=== PATIENT | female | born 1950 | race Caucasian/White ===

== ENCOUNTER 2018-08-01 15:58 | Inpatient (IN) | payer MEDICARE ==
[~2018-08-01] VITALS: Ht 160 cm; Wt 72.6 kg
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
[2018-08-01] MEDS ORDERED: GALANTAMINE 8 MG PO (17:30)
[2018-08-01] MEDS ORDERED: RAZADYNE ER8 MG PO (17:32)
[2018-08-01] MEDS ORDERED: VITAMIN D250000 UNIT PO (17:32)
[2018-08-01] MEDS ORDERED: NAMENDA10 MG PO (17:33)
[2018-08-01] MEDS ORDERED: ACETAMINOPHEN325 MG PO (17:34)
[2018-08-01] MEDS ORDERED: DEPAKOTE125 MG PO (17:36)
[2018-08-01] MEDS ORDERED: REMERON15 MG PO (17:37)
[2018-08-01] MEDS ORDERED: GABAPENTIN100 MG PO (17:40)
[2018-08-01] MEDS ORDERED: SEROQUEL25 MG PO (17:40)
[2018-08-01 17:43] VITALS: BP 141/67
[2018-08-01] MEDS ORDERED: THEREMS-M1 TAB PO (17:54)
[2018-08-01] MEDS ORDERED: NORVASC5 MG PO (17:54)
[2018-08-01 18:14] VITALS: BP 141/67; BMI 28.4
--- NOTE | 2018-08-01 20:04 | NUR ---
RECEIVED IN DAYROOM. CONFUSED. ANXIOUS. COOPERATIVE WITH CARE AND ASSESSMENT. NO SIGNS OF AGGRESSON OR AGITATION. REDIRECT AND REORIENT NEEDED. RESTING IN BED WITH EYES CLOSED AT THIS TIME. CONTINUE PLAN OF CARE.
--- NOTE | 2018-08-02 07:31 | NUR ---
B) The patient is awake, she is wandering, she answers if you say her name, but she is not able to state her name. She is pleasant at this time and has not shown any aggression this am. I) Provide prescribed meds. R) The patient is currently in the hallway awaiting vital signs to be taken. P) Continue POC.
[2018-08-02 08:03] LABS: BASOPHILS 0.2 % (0-2); EOSINOPHILS 1.2 % (0-7); HEMOGLOBIN 13.9 g/dL (12-16); LYMPHOCYTES 33.2 % (15-50); MCH 29.3 pg (26.0-34.0); MCHC 33.1 g/dL (31.0-37.0); MCV 88.4 fL (80.0-100.0); MEAN PLATELET VOLUME 9.7 fL (7.4-10.4); MONOCYTES 7.3 % (2-11); NEUTROPHILS 58.1 % (40-80); PLATELET COUNT 277 10x3/uL (130-400); RBC 4.75 10x6/uL (4.00-5.40); RDW 13.7 % (11.5-14.5); WBC 4.9 10x3/uL (4.8-10.8)
[2018-08-02 08:23] LABS: ALBUMIN 2.8 g/dL (3.4-5.0); ALKALINE PHOSPHATASE 68 U/L (46-116); ALT (SGPT) 17 U/L (10-68); BILIRUBIN - TOTAL 0.36 mg/dL (0.2-1.3); CALC OSMOLALITY 287 mosm/kg (275-300); CALCIUM 8.4 mg/dL (8.5-10.1); CARBON DIOXIDE 28.6 mmol/L (21.0-32.0); CHLORIDE - SERUM 106 mmol/L (98-107); CHOL - HDL RATIO 4.2 ratio (2.3-4.1); CHOLESTEROL, TOTAL 202 mg/dL (0-200); CREATININE - SERUM 0.6 mg/dL (0.6-1.3); GLUCOSE 128 mg/dL (74-106); HDL CHOLESTEROL 48 mg/dL (32-96); LDL CHOLESTEROL 133 mg/dL (0-100); LDL-HDL RATIO 2.8 ratio (1.5-3.5); PROTEIN - SERUM 7.5 g/dL (6.4-8.2); SODIUM 143 mmol/L (136-145); THYROID STIMULATING HORMONE 1.72 uIU/mL (0.36-3.74); TRIGLYCERIDE 109 mg/dL (30-200); UREA NITROGEN 16 mg/dL (7-18); eGFR NON AFRICAN AMERICAN > 90 mL/min (90-120)
[2018-08-02 09:28] VITALS: BP 124/70
[2018-08-02 10:10] VITALS: BMI 28.4
--- NOTE | 2018-08-02 10:21 | NUR ---
PT CONTINUES TO WANDER THE HALLS AND IS VERY RESTLESS. SHE IS A FEEDER ONLY BECAUSE SHE CANNOT FOCUS LONG ENOUGH TO FEED HERSELF. FALL PRECAUTIONS MAINTAINED. WILL CONTINUE TO MONITOR AND CONTINUE WITH PLAN OF CARE.
[2018-08-02 14:59] VITALS: Ht 160 cm; Wt 72.6 kg
[2018-08-02 20:00] VITALS: BP 139/59
--- NOTE | 2018-08-02 22:47 | NUR ---
PATIENT IS VERY CONFUSED, HAS TO REDIRECTED CONSTANTLY, COMPLIANT WITH MEDS. LABILE. WILL FOLLOW POC
--- NOTE | 2018-08-03 05:29 | NUR ---
PATIENT GIVEN ATIVAN 0.5 MG PO FOR ANXIETY AT 23:15.
[2018-08-03 06:14] LABS: VITAMIN D 25 HYDROXY 39.8 ng/mL (30.0-100.0)
[2018-08-03 07:24] LABS: RAPID PLASMA REAGIN Non Reactive (Non Reactive)
--- NOTE | 2018-08-03 08:01 | NUR ---
B) The patient is wandering the hallways, she is nonsensical, she asks about her daughter and her . She uses one word. "" or "Daughter." She is not able to state her name, she does not follow simple direction. She is unable to comprehend. I) Provide prescribed medications. Redirect as needed to stay out of rooms. P) Continue POC.
[2018-08-03 08:16] LABS: FOLATE (FOLIC ACID) - SERUM >20.0 ng/mL (>3.0)
[2018-08-03 08:27] VITALS: BP 153/74
--- NOTE | 2018-08-03 08:35 | NUR ---
Obtained urine for lab work. In and out cath.
[2018-08-03 09:36] LABS: APPEARANCE CLEAR (CLEAR); BILIRUBIN NEGATIVE (NEGATIVE); COLOR YELLOW (YELLOW); GLUCOSE NEGATIVE (NEGATIVE); KETONE SMALL mg/dL (NEGATIVE); NITRITE NEGATIVE (NEGATIVE); PROTEIN TRACE mg/dL (NEGATIVE); UROBILINOGEN NORMAL (NORMAL)
[2018-08-03 09:37] LABS: BACTERIA FEW /hpf (NONE SEEN); EPITHELIAL CELLS 0-5 /hpf (0-5); RED CELLS - URINE 0-5 /hpf (0-5)
--- NOTE | 2018-08-03 15:39 | NUR ---
PATIENT PACING ABOUT DAYROOM GETTING IN VERBAL ALTERCATIONS WITH OTHER PATIENTS. ATIVAN 0.5 MG ADMIN PO FOR ANXIETY, LUZ MARIA WELL.
[2018-08-04 01:57] VITALS: BP 186/106
--- NOTE | 2018-08-04 02:33 | NUR ---
B) Patient is alert and oriented to self, calm and cooperative this shift, I) Administered scheduled medications as ordered, monitored for safety R) Medication compliant, sleeping quiety, P) Continue plan of care.
--- NOTE | 2018-08-04 10:00 | NUR ---
CONFUSED AND DISORIENTED.COMPLIANT WITH STAFF AND MEDS.WILL NOT SIT THROUGH ONE MEAL AND FINISH MEAL,HAS TO BE REDIRECTED SEVERAL TIMES TO GO SIT BACK DOWN TO EAT.OFTEN USES FINGERS TO EAT,EX:MASHED POTATOES,CEREALS ,ECT.WANDERS ABOUT UNIT.TALKS ABOUT DAUGHTER AND IN NONSENSIBLE WAY.WILL CONTINUE WITH PLAN OF CARE,MONITOR FOR CHANGES .
[2018-08-04 10:03] VITALS: BP 100/57; BP 142/62
--- NOTE | 2018-08-04 11:49 | PN ---
PATIENT:ADY SOLER MEDICAL RECORD: [id number] LOCATION:[facility] ADMISSION DATE: 08/01/18 PROGRESS NOTE DATE OF SERVICE: 08/03/2018 SUBJECTIVE: The patient's case was discussed with staff. She has no new complaint. OBJECTIVE: The patient is in good behavioral control, but very confused. She walks about in a confused state, rambles off and incoherently, but today at least is pleasant. ASSESSMENT: No change in diagnoses. PLAN: I do think the patient is manic despite her overlying dementia. I am going to treat her with lithium. She has normal renal function and it should not be a major issue to titrate her to a therapeutic dose. TRANSINT:[id number] Voice Confirmation ID: [id number] DOCUMENT ID: [id number] IFEANYI SALAS MD at 1149 CC: [id number] DICTATION DATE: 08/03/18 1352 LITIGATION DOCKET MANAGER: 08/03/18 1400 ADM IN [address] [place] [address]
--- NOTE | 2018-08-04 15:00 | NUR ---
WANDERING ABOUT UNIT,TALKING AGGRESSIVELY ABOUT HER DAUGHTER,EXIT SEEKING.VERY CONFUSED AND DISORIENTED.UNABLE TO REDIRECT.ATIVAN 0.5MG PO GIVEN .
--- NOTE | 2018-08-04 15:25 | NUR ---
SCREAMING OUT,WILL NOT REDIRECT.HALDOL 2MG IM GIVEN.
--- NOTE | 2018-08-04 16:00 | NUR ---
FAMILY HERE VISITING.HAS HAD GOOD RESPONSE TO ATIVAN AND HALDOL.
--- NOTE | 2018-08-04 16:17 | NUR ---
FAMILY HERE TO VISIT PATIENT.
--- NOTE | 2018-08-04 19:03 | NUR ---
PATIENT EXIT-SEEKING, SHAKING DOORS AND SCREAMING ALOUD WHEN DOOR WOULD NOT OPEN.
--- NOTE | 2018-08-04 22:08 | NUR ---
RECEIVED DAY ROOM. SITTING IN CHAIR WITH PEERS AT HER SIDE. CALM AND COOPERATIVE WITH CARE AND ASSESSMENT. NO SIGNS OF AGGRESSION OR AGITATION. REDIRECT AND REORIENT NEEDED. RESTING IN BED WITH EYES CLOSED AT THIS TIME. CONTINUE PLAN OF CARE.
[2018-08-04 22:53] VITALS: BP 107/60
--- NOTE | 2018-08-05 07:30 | NUR ---
THE PT IS WANDERING IN HALLWAYS VERY CONFUSED. PT IS NOT ABLE TO STATE HER NAME OR FLOOLW SIMPLE DIRECTIONS. SHE IN UNABLE TO COMPREHEND. PRESCRIBED MEDS PROVIDED. NON MED COMPLIANT. REDIRECT AND REORIENT NEEDED. WILL CONTINUE TO MONITOR Q 15 MINUTES FOR SAFETY. WILL CPOC.
[2018-08-05 08:00] VITALS: BP 134/68
--- NOTE | 2018-08-05 15:29 | PN ---
PATIENT:ADY SOLER MEDICAL RECORD: [id number] LOCATION:[facility] ADMISSION DATE: 08/01/18 PROGRESS NOTE DATE OF SERVICE: 08/04/2018 SUBJECTIVE: The patient's case was discussed with staff. She has no new complaint. OBJECTIVE: The patient wanders about the unit. She is anxious, but not aggressive. She is clearly very confused. ASSESSMENT: No change in diagnoses. PLAN: Current medicines have been reviewed and will be maintained. Long-term prognosis is guarded. TRANSINT:[id number] Voice Confirmation ID: [id number] DOCUMENT ID: [id number] IFEANYI SALAS MD at 1529 CC: [id number] DICTATION DATE: 08/04/18 1155 SADDLE TREE STITCHER: 08/04/18 1209 ADM IN [id number] [place] [address]
[2018-08-05 20:03] VITALS: BP 168/100
--- NOTE | 2018-08-05 21:27 | NUR ---
RECEIVED IN DAYROOM. WANDERING AROUND. CALM AND COOPERATIVE WITH CARE AND ASSESSMENT. NO SIGNS OF AGGRESSION. REDIRECT AND REORIENT NEEDED. RESTING IN BED WITH EYES CLOSED AT THIS TIME. CONTINUE PLAN OF CARE.
[2018-08-06 08:00] VITALS: BP 141/69
--- NOTE | 2018-08-06 09:00 | NUR ---
PATIENT CONTINUES TO WANDER AROUND DAYROOM, VERY RESTLESS AND CONFUSED. SHE CONSTANTLY TOUCHES EVERYTHING. SHE HAS DIFFICULTY EXPRESSING WHAT SHE WANTS TO SAY. FALL PRECAUTIONS MAINTAINED. WILL CONTINUE GREEN OF CARE.
--- NOTE | 2018-08-06 10:00 | NUR ---
Nutrition Follow Up: Chart reviewed Diet: Regular with Ground Meats PO Intake: 26% meal avg No BM since admit Labs reviewed Meds noted including Megace Rec continue regular diet with DIE CAST SUPERVISOR recs for consistencies. Will order Ensure BID. RD following.
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
--- NOTE | 2018-08-06 22:46 | NUR ---
RECEIVED IN DAYROOM. WALKING AROUND. VERY CONFUSED. CALM AND COOPERATIVE WITH CARE AND ASSESSEMNT. NO SIGNS OF AGGRESSION. REDIRECT AND REORIENT NEEDED. RESTING IN BED WITH EYES CLOSED AT THIS TIME. CONTINUE PLAN OF CARE.
[2018-08-06 23:36] VITALS: BP 100/51
[2018-08-07 07:50] VITALS: BP 118/70
--- NOTE | 2018-08-07 11:00 | NUR ---
REPORT RECEIVED AB CARE ASSUMED. SHE WANDERS AROUND DAYROOM. PROVIDE PRESCRIBED MEDS. COMPLIANT WITH MEDS. REDIRECT AND REORIENT NEEDED. FALL PRECAUTIONS MAINTAINED. CONTINUE PLAN OF CARE.
--- NOTE | 2018-08-07 15:37 | PN ---
PATIENT:ADY SOLER MEDICAL RECORD: [id number] LOCATION:[facility] ADMISSION DATE: 08/01/18 PROGRESS NOTE DATE OF SERVICE: 08/06/2018 SUBJECTIVE: The patient's case was discussed with staff. She has no new complaint. OBJECTIVE: The patient denies intent to harm herself or others. She tolerates her medicines well. She is clearly very confused. ASSESSMENT: No change in diagnoses. PLAN: Supportive and educational interventions were made. Long-term prognosis is guarded. TRANSINT:[id number] Voice Confirmation ID: [id number] DOCUMENT ID: [id number] IFEANYI SALAS MD at 1537 CC: [id number] DICTATION DATE: 08/06/18 1314 LABORATORY TECH: 08/06/18 1407 ADM IN [address] [address]
--- NOTE | 2018-08-07 20:59 | NUR ---
RECEIVED IN HALLWAY. WANDERING AROUND. ATTEMPTING TO GO IN ROOMS OF OTHER PATIENTS. AGITATED. VERBALLY AGGRESSIVE AT TIMES. REDIRECT AND REORIENT NEEDED. RESTING IN BED WITH EYES CLOSED AT THIS TIME. CONTINUE PLAN OF CARE.
[2018-08-07 22:09] VITALS: BP 120/70
[2018-08-08 07:47] VITALS: BP 116/60
--- NOTE | 2018-08-08 14:48 | PN ---
PATIENT:ADY SOLER MEDICAL RECORD: [id number] LOCATION:[facility] ADMISSION DATE: 08/01/18 PROGRESS NOTE DATE OF SERVICE: 08/07/2018 SUBJECTIVE: The patient's case was discussed with staff. She has no new complaint. OBJECTIVE: The patient is clearly impaired cognitively, but actually looks significantly calmer today. ASSESSMENT: No change in diagnoses. PLAN: Supportive and educational interventions were made. Long-term prognosis is guarded. I have reviewed her current medications and will maintain them. TRANSINT:[id number] Voice Confirmation ID: [id number] DOCUMENT ID: [id number] IFEANYI SALAS MD at 1448 CC: [id number] DICTATION DATE: 08/07/18 1607 ELECTRICAL POWER ENGINEER: 08/08/18 0007 ADM IN [address] [place] [address]
--- NOTE | 2018-08-08 18:33 | NUR ---
HAS BEEN VERY CONFUSED AND DISORIENTED.WANDERS ABOUT UNIT.AGGITATED AT TIMES WITH ATTEMPTS TO REDIRECT.TAKES MEDS CRUSHED AND IN PUDDING.WILL CONTINUE WITH PLAN OF CARE,MONITOR FOR CHANGES AND SAFETY.
[2018-08-08 20:00] VITALS: BP 78/43
--- NOTE | 2018-08-09 04:30 | NUR ---
B) Patient is alert and oriented to self, very confused and wanders I) Administered scheduled medications as ordered, redirected as needed, R) Medication compliant, sleeping quietly P) Continue plan of care.
--- NOTE | 2018-08-09 07:39 | NUR ---
B) The patient is awake and she is oriented to herself, she has poor insight into her situation, she does ask about her medications and says "I am supposed to take my medicine." I) Reassure her that she will get her meds. Encourage the patient to get assistance before walking alone. R) The patient is calm at this time, she has not shown any irritability, but she does want to tell staff how to do things. P) Continue POC.
--- NOTE | 2018-08-09 08:05 | NUR ---
B) The patient is confused, she has not shown any aggression. She smiles when approached, she sometimes speaks coherently, but mostly it is word salad. She is ambulatory. I) Provide prescribed meds. R) The patient is oriented to self only. P) Continue POC.
[2018-08-09 08:10] VITALS: BP 111/43
[2018-08-09 20:08] VITALS: BP 145/98
--- NOTE | 2018-08-10 01:56 | NUR ---
B) Patient is alert and oriented to self, confused at times, follow directions, I) Administered scheduled medications as ordered, monitored for safety R) Mediation compliant, restig quietly now, P) Continue plan of care.
[2018-08-10 08:01] VITALS: BP 104/56
--- NOTE | 2018-08-10 10:02 | NUR ---
B) The patient is awake, she is oriented to self only. She is ambulatory and she wanders, she smiles and touches everything. She is pleasant, has not shown any agitation. She has poor insight into her situation. I) Provide prescribed meds, redirect as needed. R) The patient is compliant with meds and she is easily redirected today. P) Continue POC.
--- NOTE | 2018-08-10 12:56 | PN ---
PATIENT:ADY SOLER MEDICAL RECORD: [id number] LOCATION:[facility] ADMISSION DATE: 08/01/18 PROGRESS NOTE DATE OF SERVICE: 08/09/2018 SUBJECTIVE: The patient's case was discussed with staff. She has no new complaint. OBJECTIVE: The patient is in good behavioral control with limited insight about her condition. She tolerates her medicines well. ASSESSMENT: No change in diagnoses. PLAN: Supportive and educational interventions were made. Long-term prognosis is guarded. TRANSINT:[id number] Voice Confirmation ID: [id number] DOCUMENT ID: [id number] IFEANYI SALAS MD at 1256 CC: [id number] DICTATION DATE: 08/09/18 1643 CONSTRUCTION ELECTRICIAN: 08/09/18 2320 ADM IN [address] [address]
--- NOTE | 2018-08-10 12:56 | PN ---
PATIENT:ADY SOLER MEDICAL RECORD: [id number] LOCATION:[facility] ADMISSION DATE: 08/01/18 PROGRESS NOTE DATE OF SERVICE: 08/08/2018 SUBJECTIVE: The patient's case was discussed with staff. She has no new complaint. OBJECTIVE: The patient is in good behavioral control with limited insight about her condition. She tolerates her medicines well. ASSESSMENT: No change in diagnoses. PLAN: Brief supportive and educational interventions were made. Long-term prognosis is guarded. TRANSINT:[id number] Voice Confirmation ID: [id number] DOCUMENT ID: [id number] IFEANYI SALAS MD at 1256 CC: [id number] DICTATION DATE: 08/08/18 1505 GUARD MUSEUM: 08/08/18 2118 ADM IN [address] [address]
--- NOTE | 2018-08-10 16:19 | NUR ---
The patient's family is here and three of the siblings have made the decision to restart medications so that the patient will not be in such distress. The patient's daughter that is the nurse request that we call the Did let her know that I will text him MERARY.
--- NOTE | 2018-08-10 21:34 | NUR ---
PATIENT IS CONFUSED, WANDERS AROUND, TAKES MEDS, NO ADVERSE REACTION NOTED. WILL FOLLOW POC
[2018-08-11 04:45] VITALS: BP 130/65
--- NOTE | 2018-08-11 07:30 | NUR ---
REC'D PT IN HALLWAY PACING. PT DOES NOT CAUSE HARM TO OTHERS. PT IS CALMA ND COOPERATIVE WITH ASSESSMENT. PT IS ALERT TO SELF ONLY. PRESCRIBED MEDS PROVIDED. MED COMPLIANT. FALL PRECAUTIONS IN PLACE. NO AGGRESSION NOTED AT THIS TIME. WILL CONTINUE TO MONITOR Q 15 MINTES FOR SAFETY. WILL CPOC.
[2018-08-11 08:18] VITALS: BP 142/74
--- NOTE | 2018-08-11 12:21 | PN ---
PATIENT:ADY SOLER MEDICAL RECORD: [id number] LOCATION:[facility] ADMISSION DATE: 08/01/18 PROGRESS NOTE DATE OF SERVICE: 08/10/2018 SUBJECTIVE: The patient's case was discussed with staff. She has no new complaint. OBJECTIVE: The patient denies intent to harm herself or others. She generally tolerates her medicines well. She is sleeping and eating reasonably well. ASSESSMENT: No change in diagnoses. PLAN: The patient will have her Celexa increased to 20 mg daily. Celexa is being used to treat her underlying depression. She will be monitored for clinical changes associated with its use. Brief supportive and educational interventions were made. TRANSINT:[id number] Voice Confirmation ID: [id number] DOCUMENT ID: [id number] IFEANYI SALAS MD at 1221 CC: [id number] DICTATION DATE: 08/10/18 1322 MEDICAL RECEPTIONIST: 08/10/18 1329 ADM IN [id number] [place] [address]
--- NOTE | 2018-08-11 12:44 | PN ---
PATIENT:ADY SOLER MEDICAL RECORD: [id number] LOCATION:[facility] ADMISSION DATE: 08/01/18 PROGRESS NOTE DATE OF SERVICE: 08/11/2018 SUBJECTIVE: The patient's case was discussed with staff. She has no new complaint. OBJECTIVE: The patient slept 10 hours last night and ate most of the food presented to her yesterday. She is partially oriented and continues to wander a fair amount. ASSESSMENT: No change in diagnoses. PLAN: Supportive and educational interventions were made. Long-term prognosis is guarded. TRANSINT:[id number] Voice Confirmation ID: [id number] DOCUMENT ID: [id number] IFEANYI SALAS MD at 1244 CC: [id number] DICTATION DATE: 08/11/18 1233 AIR FILLER: 08/11/18 1238 ADM IN [id number] [place] [address]
[2018-08-11 21:16] VITALS: BP 135/70
--- NOTE | 2018-08-11 22:25 | NUR ---
PATIENT IS CONFUSED, WALKS AROUND AIMLESSLY, EASILY REDIRECTED AT TIMES, COMPLIANT WITH MEDS, NO ADVERSE REACTION NOTED. WILL FOLLOW POC
[2018-08-12 08:00] VITALS: BP 142/88
--- NOTE | 2018-08-12 10:00 | NUR ---
PATIENT IS AWAKE, WITH CONFUSION NOTED. ORIENTED TO SELF ONLY. SHE HAS BEEN SLEEPING SOME TODAY, BUT AWAKENS FOR MEALS. CALM AND COOPERATIVE WITH CARE ABD ASSESSMENT. MEDICATION COMPLIANT CRUSHED IN PUDDING. NO AGGRESSION NOTED. WILL CONTINUE PLAN OF CARE.
[2018-08-12 20:06] VITALS: BP 97/52
--- NOTE | 2018-08-13 00:06 | NUR ---
RECEIVED IN DAYROOM. RESTING IN RECLINER WITH EYES OPEN. CALM AND COOPERATIVE WITH CARE AND ASSESSMENT. NO SIGN OF AGGRESSION OR AGITATION. REDIRECT AND REORIENT NEEDED. RESTING IN BED WITH EYES CLOSED AT THIS TIME. CONTINUE PLAN OF CARE.
[2018-08-13 07:48] VITALS: BP 99/58
--- NOTE | 2018-08-13 10:46 | NUR ---
Nutrition Follow Up: Chart reviewed Diet: Regular with ground meat; Ensure BID PO Intake: 66% meal avg - much improved BM: 08/11/18 Labs reviewed Meds noted including Megace Rec continue current diet, supplement regimen. RD following.
--- NOTE | 2018-08-13 11:00 | NUR ---
RECEIVED IN RUTH AT NURSES DESK. AWAKE AND CONFUSED, ARGUEING WITH STAFF TO NOT GET DRESSED IN CLOTHES. CALM AND COOPRATIVE WITH CARE AND ASSESSMENT. NO AGGRESSION NOTED. REDIRECT AND REORIENT NEEDED. CONTINUE PLAN OF CARE.
--- NOTE | 2018-08-13 15:21 | PN ---
PATIENT:ADY SOLER MEDICAL RECORD: [id number] LOCATION:[facility] ADMISSION DATE: 08/01/18 PROGRESS NOTE DATE OF SERVICE: 08/12/2018 SUBJECTIVE: The patient's case was discussed with staff. She has no new complaint. OBJECTIVE: The patient denies intent to harm herself or others. She generally is tolerating her medicines well. She is much less intrusive. ASSESSMENT: No change in diagnoses. PLAN: Supportive and educational interventions were made. Her long-term prognosis is guarded. TRANSINT:[id number] Voice Confirmation ID: [id number] DOCUMENT ID: [id number] IFEANYI SALAS MD at 1521 CC: [id number] DICTATION DATE: 08/12/18 1613 AUDITOR: 08/12/18 1710 ADM IN [id number] [place] [address]
[2018-08-13 19:34] VITALS: BP 141/67
--- NOTE | 2018-08-13 21:32 | NUR ---
RECEIVED IN DAYROOM. RESTING IN RECLINER WITH EYES CLOSED. CALM AND COOPERATIVE WITH CARE AND ASSESSMENT. NO SIGNS OF AGITATION. REDIRECT AND REORIENT NEEDED. RESTING IN BED WITH EYES OPEN AT THIS TIME. CONTINUE PLAN OF CARE.
[2018-08-14 09:44] VITALS: BP 113/46
--- NOTE | 2018-08-14 15:56 | PN ---
PATIENT:ADY SOLER MEDICAL RECORD: [id number] LOCATION:[facility] ADMISSION DATE: 08/01/18 PROGRESS NOTE DATE OF SERVICE: 08/13/2018 SUBJECTIVE: The patient's case was discussed with staff. She has no new complaint. OBJECTIVE: The patient denies intent to harm herself or others. She generally tolerates her medicines well. ASSESSMENT: No change in diagnoses. PLAN: Current medicines have been reviewed and will be maintained. Her long-term prognosis is guarded. TRANSINT:[id number] Voice Confirmation ID: [id number] DOCUMENT ID: [id number] IFEANYI SALAS MD at 1556 CC: [id number] DICTATION DATE: 08/13/[address] ASSOCIATE JUSTICE: 08/13/18 2250 ADM IN [address] [place] [address]
[2018-08-14 22:07] VITALS: BP 110/52
--- NOTE | 2018-08-14 22:35 | NUR ---
RECEIVED IN PATIENT ROOM. RESTING IN BED WITH EYES CLOSED. RESPONDS TO VOICE. CALM AND COOPERATIVE WITH CARE AND ASSESSMENT. NO SIGNS OF AGGRESSION. REDIRECT AND REORIENT NEEDED. RESTING IN BED WITH EYES CLOSED AT THIS TIME. CONTINUE PLAN OF CARE.
--- NOTE | 2018-08-15 06:30 | NUR ---
PATIENT RESISTIVE WITH CARE THIS MORNING. PATIENT YELLING OUT AND CURSING STAFF. HITTING AND KICKING STAFF. UNABLE TO BE REDIRECTED.
[2018-08-15 09:23] VITALS: BP 97/58
--- NOTE | 2018-08-15 14:00 | PN ---
PATIENT:ADY SOLER MEDICAL RECORD: [id number] LOCATION:[facility] ADMISSION DATE: 08/01/18 PROGRESS NOTE DATE OF SERVICE: 08/14/2018 SUBJECTIVE: The patient's case was discussed with staff. She has no new complaint. OBJECTIVE: The patient is in good behavioral control with limited insight about her condition. She does tolerate her medications reasonably well. She has not been significantly or seriously agitated today. ASSESSMENT: No change in diagnoses. PLAN: The patient will have her gabapentin increased to 300 mg twice daily. Her long-term prognosis is guarded. She will be monitored for clinical changes associated with its use. TRANSINT:[id number] Voice Confirmation ID: [id number] DOCUMENT ID: [id number] IFEANYI SALAS MD at 1400 CC: [id number] DICTATION DATE: 08/14/18 1613 DYNAMOMETER TUNER: 08/14/18 2242 ADM IN [id number] [place] [address]
--- NOTE | 2018-08-15 18:00 | NUR ---
confused and disoriented.compliant with meds and staff.wanders about unit with slow somewhat unsteady gait.observed exit seeking .will continue with plan of care,monitor for changes and safety.
[2018-08-15 20:36] VITALS: BP 110/52
[2018-08-16] VITALS: BP 115/65
--- NOTE | 2018-08-16 01:34 | NUR ---
B) Patient is alert and oriented to self, calm and cooperative, in a good mood, I) Administered scheduled medications as ordered, monitored for safety R) Mediation compliant, sleeping quietly in her bed, P) Continue plan of care.
--- NOTE | 2018-08-16 09:00 | NUR ---
The patient began walking leaning backwards. Did notice her cyst is visible through shirt. She has a cyst in the middle upper back that is red and the patient winces when it is palpated. She sat to eat breakfast, but she was irritable with staff, she did not want them to assist her to eat and she did not want them to touch her tray. She did take her meds crushed in orange juice.
[2018-08-16 09:18] VITALS: BP 125/60
--- NOTE | 2018-08-16 17:15 | PN ---
PATIENT:ADY SOLER MEDICAL RECORD: [id number] LOCATION:[facility] ADMISSION DATE: 08/01/18 PROGRESS NOTE DATE OF SERVICE: 08/15/2018 SUBJECTIVE: The patient's case was discussed with staff. She has no new complaint. OBJECTIVE: The patient denies intent to harm herself or others. She tolerates her medicines well. ASSESSMENT: No change in diagnoses. PLAN: Supportive and educational interventions were made. Long-term prognosis is guarded. I anticipate she can be transitioned out of the hospital soon if this level of improvement continues. TRANSINT:[id number] Voice Confirmation ID: [id number] DOCUMENT ID: [id number] IFEANYI SALAS MD at 1715 CC: [id number] DICTATION DATE: 08/15/18 1419 QUEEN PRODUCER: 08/15/18 1847 ADM IN [place] [id number] [place] [address]
[2018-08-16 18:41] LABS: BASOPHILS 0.1 % (0-2); HEMATOCRIT 37.9 % (36.0-48.0); HEMOGLOBIN 12.4 g/dL (12-16); IMMATURE GRANULOCYTES 0.1 % (0-5); LYMPHOCYTES 28.3 % (15-50); MCH 29.2 pg (26.0-34.0); MCHC 32.7 g/dL (31.0-37.0); MCV 89.4 fL (80.0-100.0); MEAN PLATELET VOLUME 9.6 fL (7.4-10.4); MONOCYTES 7.7 % (2-11); NEUTROPHILS 62.8 % (40-80); PLATELET COUNT 236 10x3/uL (130-400); RBC 4.24 10x6/uL (4.00-5.40); WBC 8.1 10x3/uL (4.8-10.8)
[2018-08-16 19:31] LABS: CALC OSMOLALITY 290 mosm/kg (275-300); CALCIUM 8.2 mg/dL (8.5-10.1); CARBON DIOXIDE 25.4 mmol/L (21.0-32.0); CHLORIDE - SERUM 104 mmol/L (98-107); CREATININE - SERUM 0.8 mg/dL (0.6-1.3); GLUCOSE 167 mg/dL (74-106); POTASSIUM - SERUM 4.6 mmol/L (3.5-5.1); SODIUM 139 mmol/L (136-145); UREA NITROGEN 39 mg/dL (7-18); eGFR NON AFRICAN AMERICAN 75 mL/min (90-120)
--- NOTE | 2018-08-16 19:34 | NUR ---
PATIENT WANDERS AROUND AIMLESSLY, CONFUSED, HAS TO BE REDIRECTED. COMPLIANT WITH MEDS. NO ADVERSE EFFECTS. WILL FOLLOW POC
--- NOTE | 2018-08-17 07:50 | NUR ---
B) The patient is awake and alert, she knows her name when spoken, but she can not tell you her name. She is ambulating independently. She wanders and does get into everything that is not hers. She has no insight into her situation. I) Provide prescribed meds, redirect as needed. R) The patient takes her meds crushed in a drink or applesauce. P) Continue POC.
[2018-08-17 08:12] VITALS: BP 129/87
--- NOTE | 2018-08-17 12:03 | PN ---
PATIENT:ADY SOLER MEDICAL RECORD: [id number] LOCATION:[facility] ADMISSION DATE: 08/01/18 PROGRESS NOTE DATE OF SERVICE: 08/16/2018 SUBJECTIVE: The patient's case was discussed with staff. She has no new complaint. OBJECTIVE: The patient is confused, but has been tolerating her medicines reasonably well. ASSESSMENT: No change in diagnoses. PLAN: Current medicines have been reviewed. I am going to order some baseline labs including a urinalysis. Her long-term prognosis is guarded. TRANSINT:[id number] Voice Confirmation ID: [id number] DOCUMENT ID: [id number] IFEANYI SALAS MD at 1203 CC: [id number] DICTATION DATE: 08/16/18 1727 FIELD ADVISOR: 08/16/[address] [facility] [address] [place] [address]
--- NOTE | 2018-08-17 17:55 | NUR ---
The patient has done well in her behavior all day, she had visitors and she did well with them, but after they left she became irritable, she didn't want anyone to talk to her and told them to quit bothering her. She did look out the glass door in the day room and start talking to unseen others.
[2018-08-17 20:22] VITALS: BP 115/60
[2018-08-18 07:00] VITALS: BP 98/67
--- NOTE | 2018-08-18 18:15 | NUR ---
CONFUSED AND DISORINTED.COMPLIANT WITH MEDS.DIFFICULT TO REDIRECT AT TIMES.WILL CONTINUE WITH PLAN OF CARE,MONITOR FOR CHANGES AND SAFETY.
[2018-08-18 19:26] VITALS: BP 148/61
--- NOTE | 2018-08-18 21:49 | NUR ---
PATIENT IS CONFUSED, PACES A LOT, MUMBLES HER WORDS, HAS TO BE REDIRECTED FREQUENTLY, COMPLIANT WITH MEDS. WILL FOLLOW POC
[2018-08-19 07:00] VITALS: BP 117/81
--- NOTE | 2018-08-19 07:30 | NUR ---
REC'D PT IN HALLWAY PACING. AWAKE AND ALERT TO SELF ONLY. PT CALM AND COOPERATIVE WITH ASSESSMENT. NO AGGRESSION NOTED. REDIRECT AND REORIENT NEEDED. PRESCRIBED MEDS PROVIDED. MED COMPLIANT. FALL PRECAUTIONS IN PLACE. WILL CONTINUE TO MONITOR Q 15 MINUTES FOR SAFETY. WILL CPOC.
--- NOTE | 2018-08-19 14:45 | PN ---
PATIENT:ADY SOLER MEDICAL RECORD: [id number] LOCATION:[facility] ADMISSION DATE: 08/01/18 PROGRESS NOTE DATE OF SERVICE: 08/17/2018 SUBJECTIVE: The patient's case was discussed with staff. She has no new complaint. OBJECTIVE: The patient denies intent to harm herself or others. She is tolerating her medicines well. Eye contact is poor. Concentration is poor. ASSESSMENT: No change in diagnoses. PLAN: Current medicines have been reviewed. Her long-term prognosis is guarded. She will be maintained on current medicines and I anticipate she can be transitioned out of the hospital soon. TRANSINT:[id number] Voice Confirmation ID: [id number] DOCUMENT ID: [id number] IFEANYI SALAS MD at 1445 CC: [id number] DICTATION DATE: 08/17/[address] REGISTRY OFFICER: 08/17/18 2348 ADM IN [place] [id number] [place] [id number]
--- NOTE | 2018-08-19 14:45 | PN ---
PATIENT:ADY SOLER MEDICAL RECORD: [id number] LOCATION:[facility] ADMISSION DATE: 08/01/18 PROGRESS NOTE DATE OF SERVICE: 08/18/2018 SUBJECTIVE: The patient's case was discussed with staff. She has no new complaint. OBJECTIVE: The patient is in good behavioral control. She is quite confused, but has not been aggressive. ASSESSMENT: No change in diagnoses. PLAN: Current medicines and therapies have been reviewed and will be maintained. Long-term prognosis is guarded. TRANSINT:[id number] Voice Confirmation ID: [id number] DOCUMENT ID: [id number] IFEANYI SALAS MD at 1445 CC: [id number] DICTATION DATE: 08/18/18 1231 RUBBER STAMP DIE INSPECTOR: 08/18/18 1510 ADM IN [place] [id number] [place] [address]
[2018-08-19 21:16] VITALS: BP 110/60
--- NOTE | 2018-08-19 21:55 | NUR ---
ATTEMPTED TO CALL [facility], TO OBTAIN CONSENT FOR PROCEDURE, BLOOD, AND ANESTHESIA. NO ANSWER. MESSAGE LEFT TO RETURN CALL.
[2018-08-20 07:00] VITALS: BP 102/67
--- NOTE | 2018-08-20 08:00 | NUR ---
pt is awake and alert pacing in hallway with staff present. calm and cooperative with assessment. Redirect and Reorient as needed. prescribed meds provided. med complinat. No aggression noted. Fall precautions in place. Will continue to monitor q 15 for safety. Will cpoc.
[2018-08-20] MEDS ORDERED: LISINOPRIL10 MG PO (09:12)
[2018-08-20] MEDS ORDERED: NORVASC5 MG PO (09:12)
[2018-08-20] MEDS ORDERED: CELEXA20 MG PO (09:13)
[2018-08-20] MEDS ORDERED: NEURONTIN 300300 MG PO (09:13)
[2018-08-20] MEDS ORDERED: FLORAJEN3 CAPS460 MG PO (09:14)
[2018-08-20] MEDS ORDERED: SEROQUEL25 MG PO (09:14)
[2018-08-20] MEDS ORDERED: MEGACE40 MG PO (09:15)
[2018-08-20] MEDS ORDERED: Vitamin D PO (09:16)
--- NOTE | 2018-08-20 11:05 | NUR ---
CALLED C SPOKE WITH SUZY REPORT GIVEN. ALL DISCHARGE PAPERWORK FAXED AND COPY WILL BE SENT WITH PT.
--- NOTE | 2018-08-20 13:30 | NUR ---
PT DISCHARGED TO [facility]. PT LEFT IN STABLE CONDITION. NO S/SX OF DISTRESS NOTED. ALL PAPERWORK FAXED AND COPY SENT WITH PT.
--- NOTE | 2018-08-20 15:38 | PN ---
PATIENT:ADY SOLER MEDICAL RECORD: [id number] LOCATION:[facility] ADMISSION DATE: 08/01/18 PROGRESS NOTE DATE OF SERVICE: 08/19/2018 SUBJECTIVE: The patient's case was discussed with staff. She has no new complaint. OBJECTIVE: The patient denies intent to harm herself or others. She does tolerate her medicines well. ASSESSMENT: Senile dementia of the Alzheimer's type with behavioral disturbances. PLAN: Current medicines have been reviewed and will be maintained. Long-term prognosis is guarded. I anticipate the patient can be transitioned out of the hospital soon. TRANSINT:[id number] Voice Confirmation ID: [id number] DOCUMENT ID: [id number] IFEANYI SALAS MD at 1538 CC: [id number] DICTATION DATE: 08/19/18 1453 MANUAL MACHINIST: 08/19/18 1852 DIS IN 08/20/18 [facility] [address] [place] [address]
--- NOTE | 2018-08-22 13:04 | DS ---
PATIENT:ADY SOLER :46 MEDICAL RECORD: [id number] DISCHARGE SUMMARY ADMISSION DATE: 08/01/18 DISCHARGE DATE: 08/20/18 IDENTIFYING DATA: The patient is 68 years old and she was admitted to the hospital on a voluntary basis because of aggression. The patient is a known individual with dementia who lives at the [facility]. She was referred to us because of increasing confusion along with aggression and combativeness. There was some mention of her having a chronic mental illness, but further investigation led to the discovery that diagnosis was only given to her in recent years and I think it is erroneous. HOSPITAL COURSE: The patient was admitted to the hospital and clearly was suffering from dementia. She was evaluated from both a medical, psychological, and social standpoint. She was treated with both mood stabilizing and memory enhancing medications and showed improvement. She did have a cyst on her back that was treated with an antibiotic. [facility] DISCHARGE DIAGNOSES: AXIS I: Senile dementia of the Alzheimer's type with behavioral disturbances. AXIS II: None. AXIS III: Hypertension, diabetes, hyperlipidemia, Staph positive cyst on the back. AXIS IV: Moderate. AXIS V: Global assessment of functioning is 35. PLAN: At the time of discharge, the patient was in good behavioral control and did not represent an acute risk to herself or others. She was tolerating her medicines well. TRANSINT:[id number] Voice Confirmation ID: [id number] DOCUMENT ID: [id number] IFEANYI SALAS MD at 1304 CC: [id number] DICTATION DATE: 08/21/18 1509 MANAGER LOCAL: 08/22/18 0752 DIS IN 08/20/18 [place] [id number] [place] [id number]
== END 2018-08-20 13:30 | DRG 57 ==
LOC: D.PSYCH 15:58
PROVIDERS: ADMIT Psychiatry & Neurology Psychiatry; ATTEND Psychiatry & Neurology Psychiatry
DX: G30.1 Alzheimer's disease with late onset (principal); F02.81 Dementia in other diseases classified elsewhere, unspecified severity, with behavioral disturbance; F31.30 Bipolar disorder, current episode depressed, mild or moderate severity, unspecified; I10 Essential (primary) hypertension; E11.9 Type 2 diabetes mellitus without complications; E78.5 Hyperlipidemia, unspecified; Z87.891 Personal history of nicotine dependence; L72.3 Sebaceous cyst